=== PATIENT | female | born 1935 | race Caucasian/White ===

== ENCOUNTER 2017-01-16 20:01 | Inpatient (IN) | payer OTHER ==
[~2017-01-16] VITALS: Ht 172.7 cm; Wt 65.3 kg
[~2017-01-16 20:01] MED LIST: ADVIL200 MG PO; ANUSOL1 SUPP PR; ASPIR 8181 M1 PO; CALCIUM CITRAT1 EA14 PO; ESGIC 50-325-41 EAC1 PO; K-DUR20 MEQ PO; LIPITOR20 MG PO; METRONIDAZOLE500 MG PO; OMEPRAZOLE20 MG PO; SPECTRAVITE SE1 EACH PO; TOPROL XL25 MG PO; VITAMIN D3400 UNI1 PO
[2017-01-16 21:09] LABS: HEMATOCRIT 46.8 % (36.0-46.0); MCH 29.6 PG (29.0-34.0); MCHC 32.1 G/DL (30.0-36.0); MCV 92.5 FL (83-99); MEAN PLAT.VOLUME 10.1 uM^3 (9.5-12.4); PLATELET COUNT 218 K/uL (156-360); RBC DIS.WIDTH-CV 13.2 % (11.8-14.6); RBC DIS.WIDTH-SD 44.6 % (39-53); RED BLOOD COUNT 5.06 M/uL (3.80-5.20); WHITE BLOOD COUNT 9.8 K/uL (4.1-10.2)
[2017-01-16 21:21] LABS: CHLORIDE 101 mEq/L (99-109); POTASSIUM 4.2 mEq/L (3.7-5.4); SODIUM 138 mEq/L (136-147)
[2017-01-16 21:23] LABS: GLUCOSE 129 mg/dL (70-99)
[2017-01-16 21:24] LABS: ANION GAP 13 MEQ/L (2-14)
[2017-01-16 21:27] LABS: GFR ESTIMATE (CALCULATED) > 59 mL/min/
[2017-01-16 21:28] LABS: UREA NITROGEN (BUN) 16 mg/dL (9-23)
[2017-01-16 21:35] LABS: TROP-I INTERPRETATION NEGATIVE; TROPONIN-I 0.02 ng/mL (0.0-0.30)
[2017-01-16] MEDS ORDERED: RANITIDINE HCL150 MG PO (22:34)
[2017-01-16] MEDS ORDERED: ATORVASTATIN CA20 MG PO (22:35)
[2017-01-16] MEDS ORDERED: CULTURELLE IMM1 EACH PO (22:36)
[2017-01-16] MEDS ORDERED: PROCTOCORT28.35 GM PR (22:39)
[2017-01-16] MEDS ORDERED: VITAMIN D31000 UNIT PO (22:40)
[2017-01-17 03:34] LABS: HDL CHOLESTEROL 65 MG/DL (Desirable>=50); LDL CHOLESTEROL 110 mg/dL (Desirable<100); NON-HDL CHOLESTEROL 124 mg/dL (Desirable<160); SAMPLE HEMOLYSIS CHECK 0; SAMPLE ICTERIC CHECK 0; SAMPLE LIPEMIA CHECK 0; TOTAL CHOLESTEROL 189 mg/dL (Desirable<200); TRIGLYCERIDES 70 MG/DL (Normal: <150)
[2017-01-17 03:43] VITALS: BP 143/81
[2017-01-17 06:05] LABS: TROP-I INTERPRETATION NEGATIVE; TROPONIN-I 0.04 ng/mL (0.0-0.30)
[2017-01-17 07:58] VITALS: BP 124/75
[2017-01-17 10:55] LABS: TROP-I INTERPRETATION NEGATIVE; TROPONIN-I 0.02 ng/mL (0.0-0.30)
[2017-01-17 12:22] VITALS: BP 109/60
[2017-01-17 14:51] LABS: TROP-I INTERPRETATION NEGATIVE; TROPONIN-I 0.03 ng/mL (0.0-0.30)
[2017-01-17 16:13] VITALS: BP 109/56
[2017-01-17 20:00] VITALS: BP 121/71
[2017-01-18] VITALS: BP 111/59
[2017-01-18 04:19] VITALS: BP 118/64
[2017-01-18 07:04] LABS: HEMATOCRIT 38.5 % (36.0-46.0); MCH 29.8 PG (29.0-34.0); MCHC 32.5 G/DL (30.0-36.0); MCV 91.9 FL (83-99); MEAN PLAT.VOLUME 10.6 uM^3 (9.5-12.4); PLATELET COUNT 182 K/uL (156-360); RBC DIS.WIDTH-CV 13.2 % (11.8-14.6); RBC DIS.WIDTH-SD 44.5 % (39-53); RED BLOOD COUNT 4.19 M/uL (3.80-5.20)
[2017-01-18 07:05] LABS: WHITE BLOOD COUNT 5.7 K/uL (4.1-10.2)
[2017-01-18 07:53] LABS: ALKALINE PHOSPHATASE 48 IU/L (3-129); ANION GAP 7 MEQ/L (2-14); CHLORIDE 100 MEQ/L (99-109); GFR ESTIMATE (CALCULATED) > 59 mL/min/; GLUCOSE 103 mg/dL (70-99); SAMPLE HEMOLYSIS CHECK 0; SAMPLE ICTERIC CHECK 0; SAMPLE LIPEMIA CHECK 0; SODIUM 135 MEQ/L (136-147); TOTAL BILIRUBIN 0.8 MG/DL (0.0-1.0); UREA NITROGEN (BUN) 15 mg/dL (9-23)
[2017-01-18 08:25] VITALS: BP 134/68
[2017-01-18 12:07] VITALS: BP 104/57
[2017-01-18] MEDS ORDERED: CLONAZEPAM0.5 MG PO (13:52)
[2017-01-18] MEDS ORDERED: PRAVASTATIN SOD80 MG PO (13:52)
[2017-01-18] MEDS ORDERED: ELIQUIS2.5 MG PO (13:52)
== END 2017-01-18 15:30 | disposition home or self-care (01) | DRG 310 ==
LOC: EME 20:01 → EDOF 01-17 02:13 → 4EAST 01-17 03:15
PROVIDERS: Hospitalist
DX: I48.91 Unspecified atrial fibrillation (principal); I10 Essential (primary) hypertension; I27.2 Other secondary pulmonary hypertension; E78.00 Pure hypercholesterolemia, unspecified; Z87.891 Personal history of nicotine dependence; E78.5 Hyperlipidemia, unspecified; E03.9 Hypothyroidism, unspecified
CPT/HCPCS: 71020; 80048; 80053; 80061; 84439; 84443; 84484; 85027; 93005; 93306; 99281; 99284; J1650; J7030